=== PATIENT | female | born 1955 | race Caucasian/White ===

== ENCOUNTER → 2017-06-29 | Outpatient (CLI) | payer BC ==
--- NOTE | 2017-06-30 07:53 | MAMMOGRAPHY REPORT ---
BILATERAL DIGITAL SCREENING MAMMOGRAM TOMOSYNTHESIS WITH CAD: 06/29/2017 CLINICAL HISTORY: Routine screening. TECHNIQUE: Breast tomosynthesis in addition to standard 2D mammography was performed. Current study was also evaluated with a Computer Aided Detection (CAD) system. COMPARISON: Comparison is made to exams dated: 06/24/2016 mammogram, 06/21/2015 mammogram, 4 mammogram, 06/20/2014 mammogram, 06/16/2013 mammogram, and 05/18/2012 mammogram - [facility]. BREAST COMPOSITION: There are scattered areas of fibroglandular density in both breasts. FINDINGS: There is a stable metallic biopsy marker clip in the 6:00 right breast. No suspicious mass , architectural distortion or cluster of new, suspicious microcalcifications is seen. IMPRESSION: ACR BI-RADS CATEGORY 1: NEGATIVE There is no mammographic evidence of malignancy. A 1 year screening mammogram is recommended. The pa tient will receive written notification of the results. Approximately 10% of breast cancers are not detected with mammography. A negative mammographic report should not delay biopsy if a clinically suggestive mass is present. Laura Briggs M.D. ay/:06/29/2017 18:27:05 [employer]: Eva HEREDIA(R)(M), [facility] letter sent: Normal 1/2 BI-RADS Code: ACR BI-RADS Category 1: Negative
== END | disposition home or self-care (01) ==
LOC: C.MAMM 07:15
PROVIDERS: ATTEND Obstetrics & Gynecology
DX: Z12.31 Encounter for screening mammogram for malignant neoplasm of breast (principal)

== ENCOUNTER 2024-11-26 13:07 | Inpatient (IN) ==
[2024-11-26 13:37] LABS: Base Excess VBG 4.1 mEq/L; HCO3 VBG 29 mmol/L; Oxygen Saturation VBG < 60.0 %; PCO2 VBG 41 mmHg (38-50); PO2 VBG 33 mmHg; pH VBG 7.45 (7.36-7.41)
[2024-11-26 13:41] LABS: Basophils # (auto) 0.06 K/uL (0.00-0.20); Basophils % (auto) 0.6 %; Eosinophils % (auto) 1.1 %; Hematocrit (blood only) 39.8 % (37.0-47.0); Hemoglobin 13.9 g/dl (12.0-16.0); Immature Granulocytes # (auto) 0.05 K/uL (0.01-0.20); Immature Granulocytes % (auto) 0.5 %; Lymphocytes # (auto) 1.78 K/uL (1.20-3.40); Lymphocytes % (auto) 18.7 %; Mean Corpuscular Hemoglobin 32.4 pg (25.0-34.0); Mean Corpuscular Hgb Conc 34.9 g/dL (32.0-36.0); Mean Corpuscular Volume 92.8 fL (80.0-100.0); Mean Platelet Volume 9.4 fL (9.4-12.4); Monocytes # (auto) 0.61 K/uL (0.11-0.59); Monocytes % (auto) 6.4 %; Neutrophils # (auto) 6.91 K/uL (1.40-6.50); Neutrophils % (auto) 72.7 %; Platelet Count 325 K/uL (130-400); RDW Coefficient of Variation 12.6 % (11.5-14.5); RDW Standard Deviation 43.1 fL (36.4-46.3); Red Blood Count 4.29 M/uL (4.20-5.40); White Blood Count 9.51 K/ul (4.8-10.8)
[2024-11-26 13:46] LABS: iSTAT Hemoglobin 13.3 g/dl (12.0-16.0); iSTAT Ionized Calcium 1.16 mmol/l (1.12-1.32); iSTAT Potassium 3.8 mmol/L (3.3-5.0)
--- NOTE | 2024-11-26 13:59 | Electrocardiogram Report ---
Test Reason : Blood Pressure : */* mmHG Vent. Rate : 72 BPM Atrial Rate : 72 BPM P-R Int : 168 ms QRS Dur : 84 ms QT Int : 400 ms P-R-T Axes : 62 48 34 degrees QTcB Int : 438 ms Sinus rhythm with Premature supraventricular complexes Nonspecific ST abnormality Abnormal ECG When compared with ECG of 15-Sep-2024 04:19, Premature supraventricular complexes are now Present Confirmed by Geoffrey Shi ([id number]) on 11/26/2024 1:59:44 PM Referred By: Confirmed By: Geoffrey Shi
[2024-11-26 14:00] LABS: Albumin Level 4.2 gm/dl (3.4-5.0); BUN Creatinine Ratio 15.6 (10-20); Bilirubin Direct 0.1 mg/dl (0-0.2); Bilirubin,Total 0.5 mg/dl (0.2-1.0); Creatinine Clr Calc Pharmacy 62.5 ml/min; Magnesium 1.8 mg/dl (1.7-2.4); Potassium 3.9 mmol/L (3.5-5.1); Total Protein 8.3 gm/dl (6.0-8.3)
[2024-11-26 14:11] LABS: Partial Thromboplastin Time 26 Seconds (21-31); Prothrombin Time 10.8 Seconds (9.0-12.0)
--- NOTE | 2024-11-26 14:13 | CT Scan Report ---
CT head without contrast History: AMS Comparison: None Technique: Using multidetector thin collimation helical acquisition technique, axial, coronal and sagittal CT images from the skull base to the vertex were obtained without intravenous contrast. Dose reduction techniques were achieved by using automatic exposure control and/or adjustment of mA and/or kV according to patient size and/or use of iterative reconstruction technique. Findings: No intracranial hemorrhage, mass-effect, or midline shift. The ventricles are proportionate to the cerebral sulci. There is a small area of edema and loss of the johnson/white matter differentiation involving the left frontal operculum. A clearly visualized hyperdensity is seenwithin the left M2 artery, compatible with a thrombus. The basal cisterns are patent. The visualized paranasal sinuses are clear. Mastoid air cells are clear. Impression: Acute left frontal lobe infarct Findings discussed with Dr. Mason by Dr. Yip at 2:12 PM, 11/26/2024 Electronically signed by Cyaetano Yip 11-26-2024 2:13 PM
--- NOTE | 2024-11-26 14:18 | Emergency Department Note ---
History of Present Illness General Chief complaint: Confusion Stated complaint: LIGHTHEADED YESTERDAY, CONFUSED TODAY Time Seen by Provider: 11/26/24 13:14 Source: patient and family () History of Present Illness Provider complaint: Confusion 7-year-old female presents emergency department for confusion. is providing history. reports that the patient felt very lightheaded all day yesterday starting at 11 AM. He reports that when he woke up at 730 he noticed that the patient was very confused. He states he is not sure what time this started as the patient woke up before him. He states that the patient went to bed last night with a normal mental status at 11 PM. No falls or trauma. No fever. No liver dysfunction. No numbness or tingling. No seizures. Home Medications Medication Instructions Recorded Confirmed Type calcium 315 mg (as 1 tab PO HS 05/19/19 10/13/24 History citrate)-vitamin D3 6.25 mcg (250 unit) tablet multivitamin (Daily Multiple 1 tab PO QAM 05/19/19 10/13/24 History tablet) black cohosh 200 mg capsule 200 mg PO QAM 08/04/19 10/13/24 History furosemide 20 mg tablet 20 mg PO DAILY #10 tabs 08/21/23 10/13/24 Rx hydrochlorothiazide 25 mg tablet 25 mg PO QAM #90 tabs 11/30/23 10/13/24 Rx rosuvastatin 10 mg tablet 10 mg PO QAM #90 tabs 01/26/24 10/13/24 Rx metoprolol succinate 25 mg 25 mg PO DAILY #90 tabs 06/15/24 10/13/24 Rx tablet,extended release 24 hr losartan 25 mg tablet 25 mg PO DAILY #90 tabs 06/20/24 10/13/24 Rx cyclobenzaprine 5 mg tablet 5 mg PO TID PRN muscle spasm #20 09/15/24 10/13/24 Rx tabs mecobalamin (vitamin B12) 1,000 1,000 mcg PO DAILY 09/29/24 10/13/24 History mcg chewable tablet mv-min-vit C-ascorb 1 tab PO QAM PRN 09/29/24 10/13/24 History Gc-Zhf-Awv-herb #124 333 mg-1.7 mg chewable tablet (Airborne (ascorbate sodium)) gabapentin 100 mg capsule See Rx Instructions PO TID #90 caps 10/13/24 10/13/24 Rx hydrocodone 5 mg-acetaminophen 325 1 tab PO Q6H #20 tabs 10/14/24 Rx mg tablet Allergies Allergy/AdvReac Type Severity Reaction Status Date / Time lisinopril AdvReac Mild headache, Verified 10/13/24 15:36 dizzy mold Allergy Mild Congested Uncoded 10/13/24 15:36 Dust AdvReac Unknown Uncoded 10/13/24 15:36 Pollen AdvReac Unknown Uncoded 10/13/24 15:36 Ragweed AdvReac Unknown Uncoded 10/13/24 15:36 Past Med/Surg History Problem List (Updated 11/26/24 @ 15:07 by Kee Mason MD) Stroke (Acute) Post herpetic neuralgia Cellulitis of left breast Shingles Peripheral edema White coat syndrome with diagnosis of hypertension Palpitations Hypertension (Chronic) Hyperlipidemia (Chronic) Medical History (Updated 11/26/24 @ 15:07 by Kee Mason MD) Nausea and vomiting after administration of anesthetic agent Surgical History History of left breast biopsy benign--marker in place History of bilateral tubal ligation History of hysterectomy with unilateral oophorectomy History of colonoscopy History of oral surgery gum sx History of wisdom tooth extraction Family History Grandmother (Paternal) Breast cancer Father Family hx of colon cancer Grandfather (Maternal) Family history of diabetes mellitus Aunt Family hx of colon cancer Other No family history of adverse response to anesthesia Denies family history of Ovarian cancer Prostate cancer Myocardial infarction Colorectal cancer Social History Smoking Status: Never smoker Second Hand Exposure: No (father smoked); Do You Dip or Chew Tobacco: No; Hx Alcohol Use: Yes Alcohol type: wine Alcohol Intake Frequency: Monthly or Less Hx Substance Use: No Preferred Language: Bulgarian Communication Ability: Effective Visual Impairment: Limited Hearing Ability: Normal Logistics Planning Manager Required: No Beliefs That Will Affect Care: None marital status: Current Living Situation: Spouse current occupational status: retired How many Children do You have: 2 Feels Safe at Home: Yes Childhood Exposure to Second-Hand Smoke: Yes Diet: regular caffeine: Yes during the past year weight has: remained stable Dental Care, Regularly: Yes Physical Activity Frequency: 3-4 Times per Week Seatbelt Use: always Sunscreen Use: Yes Do you think of yourself as: straight/heterosexual Sexual Activity: has been sexually active, but not for at least 12 months Gender Identity: Female Assistive Devices: Contacts and Glasses Physical Exam Vital Signs Vital Signs - 24 hr 11/26/24 13:10 11/26/24 13:19 11/26/24 13:37 Temperature 36.8 C Temperature Source Temporal Artery Scan Pulse Rate 82 79 Pulse Rate [Apical] Respiratory Rate 18 Respiratory Effort / Characteristics Respiratory Depth Respiratory Pattern Blood Pressure 153/115 H Blood Pressure [Left Arm] Blood Pressure Mean 127 Blood Pressure Mean [Left Arm] Blood Pressure Position [Left Arm] Pulse Oximetry 95 93 Oxygen Delivery Method Room Air Room Air Sepsis Recent Fever Within 48 Hours No Sepsis New/Unexplained Change in Mental Status N/A Sepsis Action Taken by Nursing No Action Required 11/26/24 13:37 11/26/24 14:04 Temperature Temperature Source Pulse Rate Pulse Rate [Apical] 79 Respiratory Rate 16 20 Respiratory Effort / Characteristics Non-Labored Spontaneous Respiratory Depth Normal Respiratory Pattern Regular Blood Pressure Blood Pressure [Left Arm] 185/94 H Blood Pressure Mean Blood Pressure Mean [Left Arm] 124 Blood Pressure Position [Left Arm] Semi-fowlers Pulse Oximetry 97 99 Oxygen Delivery Method Room Air Room Air Sepsis Recent Fever Within 48 Hours Sepsis New/Unexplained Change in Mental Status Sepsis Action Taken by Nursing Physical Exam HENT: Exam performed. -Head: Normocephalic and atraumatic. -Right Ear: External ear normal. No mastoid erythema -Left Ear: External ear normal. No mastoid erythema -Mouth/Throat: The oropharynx is clear and moist. No trismus in the jaw. No dental abscesses or uvula swelling. No oropharyngeal exudate or tonsillar abscesses. EYES: Conjunctivae and EOM are normal. Pupils are equal, round, and reactive to light. Right eye exhibits no discharge. Left eye exhibits no discharge. No scleral icterus. NECK: Normal range of motion. Neck supple. No JVD present. No rigidity. No tracheal deviation and normal range of motion present. CV: Normal rate, regular rhythm, normal heart sounds and intact distal pulses. There is no peripheral edema. Palpable radial pulses bue. PULM/CHEST: Effort normal and breath sounds normal. No respiratory distress. No stridor. She has no wheezes. She has no rales. ABD: The abdomen is soft. She has no distension. No mass is present. There is no tenderness. There is no rebound, no guarding. MUSC/SKEL: Normal range of motion. There is no peripheral edema, tenderness or deformity. NEURO: She is alert and oriented to person, place, and time. She has normal strength. No cranial nerve deficit or sensory deficit. Coordination and gait normal. GCS eye subscore is 4. GCS verbal subscore is 5. GCS motor subscore is 6. Cerebellar tests wnl. Course Course 1314: The patient was evaluated in room C1. A complete history and physical exam was performed Cardiac monitoring: An order was placed for continuous cardiac monitoring. The monitor shows a rate of 70 with sinus rhythm interpreted by me 1417: Received a call from radiology Dr. Yip states that the patient has a left frontal lobe infarct with a hyperdensity seen within left M2 compatible with a thrombus. Will discuss with telestroke however patient is not a TNKase candidate in my opinion as patient's last well-known normal was yesterday at 11 PM and is unclear when her symptoms began. 1432: Spoke with Dr. Martinez from [facility]. He agrees patient is not a TNKase candidate and states that there is no endovascular invention that can be performed. Her recommends aspirin 324, Plavix 300, MRI and MRA and admission to the hospital. Administered Medications Discontinued Medications Aspirin (Aspirin 81 Mg Chew) 324 mg PO NOW STA Stop: 11/26/24 14:32 Last Admin: 11/26/24 14:48 Dose: 324 mg Documented By: JULIETA Clopidogrel Bisulfate (Clopidogrel Bisulfate 300 Mg Tab) 300 mg PO NOW STA Stop: 11/26/24 14:32 Last Admin: 11/26/24 14:48 Dose: 300 mg Documented By: JULIETA Medical Decision Making Laboratory Data Attestation: I reviewed the patient's lab results. 11/26/24 13:20 11/26/24 13:20 Lab Results 11/26/24 11/26/24 11/26/24 Range/Units 13:20 13:33 14:00 WBC 9.51 (4.8-10.8) K/ul RBC 4.29 (4.20-5.40) M/uL Hgb 13.9 (12.0-16.0) g/dl POC Hgb 13.3 (12.0-16.0) g/dl Hct 39.8 (37.0-47.0) % POC Hct 39 (37-47) % MCV 92.8 (80.0-100.0) fL MCH 32.4 (25.0-34.0) pg MCHC 34.9 (32.0-36.0) g/dL RDW Std Deviation 43.1 (36.4-46.3) fL RDW Coeff of Italo 12.6 (11.5-14.5) % Plt Count 325 (130-400) K/uL MPV 9.4 (9.4-12.4) fL Immature Gran % (Auto) 0.5 % Neut % (Auto) 72.7 % Lymph % (Auto) 18.7 % Monroe % (Auto) 6.4 % Eos % (Auto) 1.1 % Baso % (Auto) 0.6 % Neut # (Auto) 6.91 H (1.40-6.50) K/uL Lymph # (Auto) 1.78 (1.20-3.40) K/uL Monroe # (Auto) 0.61 H (0.11-0.59) K/uL Eos # (Auto) 0.10 (0.00-0.50) K/uL Baso # (Auto) 0.06 (0.00-0.20) K/uL Immature Gran # (Auto) 0.05 (0.01-0.20) K/uL PT 10.8 (9.0-12.0) Seconds INR 1.0 (0.9-1.1) APTT 26 (21-31) Seconds PTT Ratio 1.0 VBG pH 7.45 H (7.36-7.41) VBG pCO2 41 (38-50) mmHg VBG pO2 33 mmHg VBG HCO3 29 mmol/L VBG O2 Saturation < 60.0 % VBG Base Excess 4.1 mEq/L POC Sodium 135 (135-144) mmol/L Sodium 134 L (136-145) mmol/L POC Potassium 3.8 (3.3-5.0) mmol/L Potassium 3.9 (3.5-5.1) mmol/L POC Chloride 97 L (101-112) mmol/L Chloride 97 L (98-107) mmol/L Carbon Dioxide 26 (21-32) mmol/L POC Total CO2 23 L (24-31) mmol/L Anion Gap 11 (3-11) POC Anion Gap 19.0 (16-25) mmol/L POC BUN 14 (7-18) mg/dl BUN 15 (6-23) mg/dl Creatinine 0.96 (0.6-1.2) mg/dl POC Creatinine 1.0 (0.6-1.3) mg/dl Est Cr Clr Drug Dosing 62.5 ml/min eGFR 64.45 BUN/Creatinine Ratio 15.6 (10-20) Glucose 112 H (70-99(Fasting)) mg/dl POC Glucose (other) 113 H (70-99) mg/dl Calcium 10.0 (8.6-10.3) mg/dl POC Ioniz Calcium Anne Marie 1.16 (1.12-1.32) mmol/l Magnesium 1.8 (1.7-2.4) mg/dl Total Bilirubin 0.5 (0.2-1.0) mg/dl Direct Bilirubin 0.1 (0-0.2) mg/dl AST 26 (13-39) U/L ALT 23 (7-52) U/L Alkaline Phosphatase 76 (34-104) U/L Ammonia 16.0 L (18-72) umol/L Total Protein 8.3 (6.0-8.3) gm/dl Albumin 4.2 (3.4-5.0) gm/dl Lipase 14 (11-82) U/L Urine Comment Imaging Data Radiologist's Impression: Head CT 11/26/24 13:20 CT head without contrast History: AMS Comparison: None Technique: Using multidetector thin collimation helical acquisition technique, axial, coronal and sagittal CT images from the skull base to the vertex were obtained without intravenous contrast. Dose reduction techniques were achieved by using automatic exposure control and/or adjustment of mA and/or kV according to patient size and/or use of iterative reconstruction technique. Findings: No intracranial hemorrhage, mass-effect, or midline shift. The ventricles are proportionate to the cerebral sulci. There is a small area of edema and loss of the johnson/white matter differentiation involving the left frontal operculum. A clearly visualized hyperdensity is seenwithin the left M2 artery, compatible with a thrombus. The basal cisterns are patent. The visualized paranasal sinuses are clear. Mastoid air cells are clear. Impression: Acute left frontal lobe infarct Findings discussed with Dr. Mason by Dr. Yip at 2:12 PM, 11/26/2024 Electronically signed by Cayetano Yip 11-26-2024 2:13 PM ECG Data Attestation: I personally reviewed and interpreted this ECG as follows: Rate (beats per minute): 72 Rhythm: + normal sinus ECG Intervals/blocks: + Normal QRS, + Normal AK and + Normal QT-c ECG ST segments: + Normal ST segments MDM Narrative 1314: The patient was evaluated in room C1. A complete history and physical exam was performed Cardiac monitoring: An order was placed for continuous cardiac monitoring. The monitor shows a rate of 70 with sinus rhythm interpreted by me 1417: Received a call from radiology Dr. Yip states that the patient has a left frontal lobe infarct with a hyperdensity seen within left M2 compatible with a thrombus. Will discuss with telestroke however patient is not a TNKase candidate in my opinion as patient's last well-known normal was yesterday at 11 PM and is unclear when her symptoms began. 1432: Spoke with Dr. Martinez from [facility]. He agrees patient is not a TNKase candidate and states that there is no endovascular invention that can be performed. Her recommends aspirin 324, Plavix 300, MRI and MRA and admission to the hospital. Impression & Plan Stroke Discharge Plan Visit Data Chief Complaint: Confusion Stated Complaint: LIGHTHEADED YESTERDAY, CONFUSED TODAY ED Provider: Kee Mason Discharge Problem: Stroke Patient Disposition: Admitted As Inpatient Condition: Fair Forms Stand Alone Forms: My [facility] [employer] Prescriptions Prescriptions: No Action furosemide 20 mg tablet 20 mg PO DAILY Qty: 10 2RF Rx Instructions: for 5 days, hold HCTZ hydrochlorothiazide 25 mg tablet 25 mg PO QAM Qty: 90 3RF Hold Instructions: not taking it rosuvastatin 10 mg tablet 10 mg PO QAM Qty: 90 3RF metoprolol succinate 25 mg tablet extended release 24 hr 25 mg PO DAILY Qty: 90 3RF losartan 25 mg tablet 25 mg PO DAILY Qty: 90 3RF hydrocodone-acetaminophen 5-325 mg tablet 1 tab PO Q6H Qty: 20 0RF Rx Instructions: short term till gabapentin is [place] calcium citrate-vitamin D3 315 mg- 250 unit tablet 1 tab PO HS multivitamin [Daily Multiple] tablet 1 tab PO QAM gabapentin 100 mg capsule See Rx Instructions PO TID Qty: 90 2RF Rx Instructions: 1 at bedtime for 1 week then 1 twice a for a week then 1 three times a day orally three times a day; cyclobenzaprine 5 mg tablet 5 mg PO TID PRN (Reason: muscle spasm) Qty: 20 0RF mecobalamin (vitamin B12) 1,000 mcg tablet,chewable 1,000 mcg PO DAILY black cohosh 200 mg Capsule 200 mg PO QAM Airborne (ascorbate sodium) 333-1.7 mg tablet,chewable 1 tab PO QAM PRN Referrals Referrals: Ernestine Snow CRNP [Primary Care Provider] - Discharge Problem: Stroke Qualifiers: CVA mechanism: unspecified Qualified Code(s): I63.9 - Cerebral infarction, unspecified
[2024-11-26] MEDS: CLOPIDOGREL BISULFATE 300 MG TAB PO STA (14:48)
[2024-11-26] MEDS: ASPIRIN 81 MG CHEW PO STA (14:48)
[2024-11-26 14:55] LABS: Appearance Urine Clear (Clear); Bacteria Urine Automated None Seen (None Seen); Bilirubin Urine Negative (Negative); Blood Urine Negative (Negative); Cast Urine Automated 0-2 /lpf (0-2); Color Urine Yellow; Glucose Urine UA Negative (Negative); Ketones Urine Negative (Negative); Leukocyte Esterase Urine 2+ (Negative); Nitrite Urine Negative (Negative); Protein Urine Negative (Negative); RBC Urine Automated 0-2 /hpf (0-2); Specific Gravity Urine 1.018 (1.000-1.030); Urobilinogen Urine Negative (Negative)
--- NOTE | 2024-11-26 15:49 | History & Physical Report ---
Date of Service November 26, 2024 Assessment & Plan (1) Stroke: Plan: - Acute left frontal stroke on CT - Stroke alert called. Dr. Martinez from [place] recommends aspirin, Plavix, MRI head, MRA of the head and neck - Echocardiogram with bubble study to rule out PFO and paradoxical embolism - Orders from stroke order set used for critical pathway - PT, OT, COLD STORAGE SUPERVISOR evaluations ordered - Admit to medical telemetry (2) Post herpetic neuralgia: Plan: - History of stroke along the left dermatome right under left breast 5 to 6 weeks ago - No open sores - Pain is improved - Patient discontinued gabapentin at home (3) Shingles: Plan: - Patient examined. No open lesions along the dermatome on the left under the left breast. (4) Hypertension: Plan: - Blood pressure 143 systolically at patient's last office visit. Currently BP is 185/94. - Continue home medications. Will allow for permissive hypertension during this acute phase of the CVA - Check echocardiogram as part of stroke protocol (5) Hyperlipidemia: Plan: - Continue rosuvastatin Plan DVT prophylaxis: SCDs and ELISABETH ruiz. Hold anticoagulation during acute phase of CVA CODE STATUS: Full resuscitation per patient and family Anticipate patient will need rehabilitation particularly with speech-language pathology Case discussed with Dr. Ybarra History of Present Illness Chief Complaint: Acute CVA Primary Care Provider: TERRENCE Olivera Attending: Dr. Ybarra Mrs. Feldman is a 69-year-old female with a past medical history including hyperlipidemia, hypertension, palpitations, peripheral edema, shingles recently, postherpetic neuralgia, cellulitis of left breast, whitecoat syndrome with diagnosis of hypertension. She presents with confusion this morning 730 that seemed worse than yesterday. She began feeling lightheaded yesterday about 11 AM. Last known well was last night at 11 PM. and daughter in the room at the time of my examination. They state that she seemed confused had trouble finding words and they brought her to the emergency department. She had no falls or trauma. She has not been ill. They did not notice any facial droop or change in gait or function. They deny history of stroke or TIA in the past. At the time of my examination, patient is awake and alert. She follows simple commands. She is having difficulty with word finding and has some minimal ataxia. She denies current headache, visual changes, pain, fever, chills. A stroke alert was called and patient is not a TNKase candidate and there is no endovascular invention that can be performed. Recommendation is aspirin 324, Plavix 300, MRI and MRA and admission to the hospital. Patient has a history of shingles 5 to 6 weeks ago. She saw some evidence of the infection under her left breast following the dermatome back to her spine. There are no open lesions. Patient stopped taking gabapentin as symptoms have improved. Patient's current blood pressure is 185/94. Last outpatient reading was 143/89 on 09/29/2024. Patient reported to have whitecoat syndrome. Will allow for permissive hypertension due to acute CVA. Patient has no other acute complaints at this time. Allergies Allergy/AdvReac Type Severity Reaction Status Date / Time mold Allergy Intermediate Congested Unverified 11/26/24 15:58 pollen extracts Allergy Intermediate Congested Unverified 11/26/24 15:58 ragweed pollen Allergy Intermediate Congested Unverified 11/26/24 15:58 lisinopril AdvReac Mild headache, Verified 11/26/24 15:58 dizzy Dust AdvReac Unknown Congested Uncoded 11/26/24 15:58 Home Medications Medication Instructions Recorded Confirmed Type calcium 315 mg (as 1 tab PO HS 05/19/19 11/26/24 History citrate)-vitamin D3 6.25 mcg (250 unit) tablet black cohosh 200 mg capsule 200 mg PO QAM 08/04/19 11/26/24 History hydrochlorothiazide 25 mg tablet 25 mg PO QAM #90 tabs 11/30/23 11/26/24 Rx rosuvastatin 10 mg tablet 10 mg PO QAM #90 tabs 01/26/24 11/26/24 Rx metoprolol succinate 25 mg 25 mg PO DAILY #90 tabs 06/15/24 11/26/24 Rx tablet,extended release 24 hr losartan 25 mg tablet 25 mg PO DAILY #90 tabs 06/20/24 11/26/24 Rx cyclobenzaprine 5 mg tablet 5 mg PO TID PRN muscle spasm #20 09/15/24 11/26/24 Rx tabs mecobalamin (vitamin B12) 1,000 1,000 mcg PO DAILY 09/29/24 11/26/24 History mcg chewable tablet mv-min-vit C-ascorb 1 tab PO QAM PRN Sick 09/29/24 11/26/24 History Pc-Apg-Mmd-herb #124 333 mg-1.7 mg chewable tablet (Airborne (ascorbate sodium)) multivitamin 1 tab PO DAILY 11/26/24 11/26/24 History Past Med/Surg History Problem List (Updated 11/26/24 @ 15:07 by Kee Mason MD) Stroke (Acute) Post herpetic neuralgia Cellulitis of left breast Shingles Peripheral edema White coat syndrome with diagnosis of hypertension Palpitations Hypertension (Chronic) Hyperlipidemia (Chronic) Medical History (Updated 11/26/24 @ 15:07 by Kee Mason MD) Nausea and vomiting after administration of anesthetic agent Surgical History History of left breast biopsy benign--marker in place History of bilateral tubal ligation History of hysterectomy with unilateral oophorectomy History of colonoscopy History of oral surgery gum sx History of wisdom tooth extraction Family History Grandmother (Paternal) Breast cancer Father Family hx of colon cancer Grandfather (Maternal) Family history of diabetes mellitus Aunt Family hx of colon cancer Other No family history of adverse response to anesthesia Denies family history of Ovarian cancer Prostate cancer Myocardial infarction Colorectal cancer Social History Smoking Status: Never smoker Second Hand Exposure: No (father smoked); Do You Dip or Chew Tobacco: No; Hx Alcohol Use: No Hx Substance Use: No Preferred Language: Hungarian Communication Ability: Effective Visual Impairment: Limited Hearing Ability: Normal Sales Ledger Clerk Required: No Beliefs That Will Affect Care: None marital status: Current Living Situation: Spouse current occupational status: retired How many Children do You have: 2 Other Information That Helps Us Care for You: No Feels Safe at Home: Yes Childhood Exposure to Second-Hand Smoke: Yes Diet: regular caffeine: Yes during the past year weight has: remained stable Dental Care, Regularly: Yes Physical Activity Frequency: 3-4 Times per Week Seatbelt Use: always Sunscreen Use: Yes Do you think of yourself as: straight/heterosexual Sexual Activity: has been sexually active, but not for at least 12 months Gender Identity: Female Assistive Devices: Glasses Review of Systems 2 Review of Systems: A total of 10 systems was reviewed and is negative other than as listed in the HPI Physical Exam 2 Physical Exam: GENERAL : No acute distress. Pleasant. Difficulty with word finding resulting in some frustration with the patient. EYES: No icterus, gaze conjugate. Pupils equal round and reactive to light and accommodation. Extraocular movement is intact NOSE: No evidence of epistaxis MOUTH: No lesions or candidiasis. No facial droop. Tongue is midline. Strength of tongue is appropriate bilaterally NECK: Supple. No appreciation of carotid bruits LUNGS: CTA B/L, no wheezes, rales or rhonchi HEART: Regular, rate controlled. No appreciation of murmurs gallops or rubs. ABDOMEN: Soft, NT, ND, BS Present. No appreciation of abdominal bruit EXTREMITIES: No LE edema, pedal pulses intact and equal bilaterally. NEURO: Awake and alert. Some word finding difficulty. Cerebellar function intact with [id number], rapid on movements, [id number]. Strength is equal and appropriate upper and lower extremities. Toes are downgoing bilaterally. Patient follows commands. Aside from some word finding difficulty, no focal deficits appreciated at bedside. Results & Data Results & Data Vital Signs (Past 12 Hours) Vital Signs Temp Pulse Pulse Resp BP BP Pulse Ox 11/26/24 14:04 79 20 185/94 H 99 11/26/24 13:37 16 97 11/26/24 13:37 93 11/26/24 13:19 79 11/26/24 13:10 36.8 C 82 18 153/115 H 95 O2 Del Method 11/26/24 14:04 Room Air 11/26/24 13:37 Room Air 11/26/24 13:37 Room Air 11/26/24 13:19 11/26/24 13:10 Room Air Laboratory Results 11/26/24 13:20 11/26/24 13:20 INR 1.0 (0.9-1.1) 11/26/24 13:[address] 11/26/24 13:20 CT head without contrast History: AMS Comparison: None Technique: Using multidetector thin collimation helical acquisition technique, axial, coronal and sagittal CT images from the skull base to the vertex were obtained without intravenous contrast. Dose reduction techniques were achieved by using automatic exposure control and/or adjustment of mA and/or kV according to patient size and/or use of iterative reconstruction technique. Findings: No intracranial hemorrhage, mass-effect, or midline shift. The ventricles are proportionate to the cerebral sulci. There is a small area of edema and loss of the johnson/white matter differentiation involving the left frontal operculum. A clearly visualized hyperdensity is seenwithin the left M2 artery, compatible with a thrombus. The basal cisterns are patent. The visualized paranasal sinuses are clear. Mastoid air cells are clear. Impression: Acute left frontal lobe infarct Findings discussed with Dr. Mason by Dr. Yip at 2:12 PM, 11/26/2024 Electronically signed by Cayetano Yip 11-26-2024 2:13 PM Medications Administered Aspirin 324 mg Clopidogrel 300 mg ECG Additional Comments: Code Status & VTE Plan Code Status Full resuscitation VTE Prophylaxis Plan VTE Prophylaxis will be ordered: Yes Supervising Physician Co-Signing Physician Notes The patient was seen by me. The chart was reviewed. Case discussed with TAN Cali. Agree with assessment and plan PG Care Time/CCT Total # of Minutes Spent Total Time Spent with Patient: Total time spent is greater than 50% in coordination of care (as documented) at patient's floor/unit and/or counseling patient: 60 minutes with patient with greater than 30 minutes pvug-he-fhfk with patient, , daughter Coding Level of Care Code 28581 INT INP/OBS CARE 2/55MIN Medical Decision Making Moderate Complexity Diagnoses Stroke I63.9 CVA mechanism: unspecified Post herpetic neuralgia B02.29 Shingles B02.9 Primary hypertension I10 Hypertension type: primary hypertension Pure hypercholesterolemia E78.00 Hyperlipidemia type: pure hypercholesterolemia (1) Stroke CVA mechanism: unspecified Qualified Code(s): I63.9 - Cerebral infarction, unspecified (4) Hypertension Hypertension type: primary hypertension Qualified Code(s): I10 - Essential (primary) hypertension (5) Hyperlipidemia Hyperlipidemia type: pure hypercholesterolemia Qualified Code(s): E78.00 - Pure hypercholesterolemia, unspecified
[2024-11-26] MEDS ORDERED: PHARMACIST DISCHARGE MED REC CONSULT PRN (17:39)
[2024-11-26] MEDS: GABAPENTIN 100 MG CAP PO SCH (20:22)
[2024-11-27 06:52] LABS: Basophils # (auto) 0.04 K/uL (0.00-0.20); Basophils % (auto) 0.4 %; Eosinophils # (auto) 0.09 K/uL (0.00-0.50); Hematocrit (blood only) 38.4 % (37.0-47.0); Hemoglobin 13.1 g/dl (12.0-16.0); Immature Granulocytes # (auto) 0.03 K/uL (0.01-0.20); Immature Granulocytes % (auto) 0.3 %; Lymphocytes # (auto) 1.88 K/uL (1.20-3.40); Lymphocytes % (auto) 20.7 %; Mean Corpuscular Hemoglobin 31.2 pg (25.0-34.0); Mean Corpuscular Hgb Conc 34.1 g/dL (32.0-36.0); Mean Corpuscular Volume 91.4 fL (80.0-100.0); Mean Platelet Volume 9.5 fL (9.4-12.4); Monocytes # (auto) 0.75 K/uL (0.11-0.59); Monocytes % (auto) 8.3 %; Neutrophils % (auto) 69.3 %; Platelet Count 319 K/uL (130-400); RDW Coefficient of Variation 12.7 % (11.5-14.5); RDW Standard Deviation 42.3 fL (36.4-46.3); White Blood Count 9.09 K/ul (4.8-10.8)
[2024-11-27 08:17] LABS: Estimated Average Glucose 126 mg/dl
[2024-11-27 08:19] LABS: BUN Creatinine Ratio 16.3 (10-20); Calcium 9.4 mg/dl (8.6-10.3); Chol HDL Ratio 3.8 (0-5); Creatinine Clr Calc Pharmacy 69.4 ml/min; Potassium 3.8 mmol/L (3.5-5.1)
[2024-11-27] MEDS: LORazepam 0.5 MG TAB PO STA (08:43)
--- NOTE | 2024-11-27 08:43 | Neurology Consultation ---
Date of Consultation November 27, 2024 Assessment & Plan (1) Stroke: Plan 69-year-old right-handed female presenting with aphasia characterized by hesitant speech, word finding difficulty, paraphasic errors, present upon awakening yesterday morning. She does not have an associated hemiparesis or visual field deficit. Patient's initial CT of the head reveals an acute to subacute appearing cortical left frontal lobe infarct with an associated thrombosed left M2 vessel. The cortical location and size of her stroke are suggestive of a cardioembolic event, ipsilateral carotid embolism could also be considered. MRI to be completed today, follow-up with results. Follow-up with results of echocardiogram. Continue cardiac monitoring. Consider ambulatory cardiac monitoring at time of discharge as well. Patient needs vascular imaging completed, either MRA of the head and neck or CTA of the head and neck. I see that MRAs have been ordered. Consider increasing patient's dosage of rosuvastatin, goal LDL 70 or less. Agree with dual antiplatelet therapy. Would discontinue clopidogrel after 3 weeks and continue with aspirin monotherapy. However, if atrial fibrillation is identified or if her echocardiogram reveals findings suggestive of cardioembolic source, would consider anticoagulation going forward. Blood pressure management per stroke protocol. Consultations with PT/OT/speech therapy. She may follow-up with myself or an FRANCIS in neurology clinic 2 to 3 weeks after discharge. Please call with any questions. History of Present Illness Reason for Consultation: stroke Requesting Physician: Johnny Attending Physician: Dwaine Ybarra MD History of Present Illness The patient is a 69-year-old right handed female who presented to the emergency department yesterday afternoon for further assessment of lightheadedness and confusion that was noted upon awakening. She reports difficulty finding words and speaking. Makes occasional word and syllable substitutions. Her symptoms have been persistent. She reports having episodes of dizziness over the previous week. No weakness or difficulty with gait or balance reported. No change in vision. No headache. She had been seen in the emergency department September 15, 2024 with chest pain. She has a past medical history notable for hypertension, hyperlipidemia, and recent left thoracic dermatome shingles which has been healing. She does not take aspirin or other blood thinners. I independently reviewed patient's CT of the head completed at time of presentation which reveals an acute to subacute appearing left frontal lobe cortical infarct with a probable associated thrombosed left MCA branch vessel. An electrocardiogram revealed a sinus rhythm with premature ventricular complexes. She does not report any dizziness or lightheadedness at this time although continues to exhibit some difficulty with speech, word finding, occasional word and syllable substitutions. Her daughter is present at bedside. Allergies Allergy/AdvReac Type Severity Reaction Status Date / Time mold Allergy Intermediate Congested Unverified 11/26/24 15:58 pollen extracts Allergy Intermediate Congested Unverified 11/26/24 15:58 ragweed pollen Allergy Intermediate Congested Unverified 11/26/24 15:58 lisinopril AdvReac Mild headache, Verified 11/26/24 15:58 dizzy Dust AdvReac Unknown Congested Uncoded 11/26/24 15:58 Home Medications Medication Instructions Recorded Confirmed Type calcium 315 mg (as 1 tab PO HS 05/19/19 11/26/24 History citrate)-vitamin D3 6.25 mcg (250 unit) tablet black cohosh 200 mg capsule 200 mg PO QAM 08/04/19 11/26/24 History hydrochlorothiazide 25 mg tablet 25 mg PO QAM #90 tabs 11/30/23 11/26/24 Rx rosuvastatin 10 mg tablet 10 mg PO QAM #90 tabs 01/26/24 11/26/24 Rx metoprolol succinate 25 mg 25 mg PO DAILY #90 tabs 06/15/24 11/26/24 Rx tablet,extended release 24 hr losartan 25 mg tablet 25 mg PO DAILY #90 tabs 06/20/24 11/26/24 Rx cyclobenzaprine 5 mg tablet 5 mg PO TID PRN muscle spasm #20 09/15/24 11/26/24 Rx tabs mecobalamin (vitamin B12) 1,000 1,000 mcg PO DAILY 09/29/24 11/26/24 History mcg chewable tablet mv-min-vit C-ascorb 1 tab PO QAM PRN Sick 09/29/24 11/26/24 History Lc-Apr-Hjn-herb #124 333 mg-1.7 mg chewable tablet (Airborne (ascorbate sodium)) multivitamin 1 tab PO DAILY 11/26/24 11/26/24 History Patient History Medical History (Updated 11/26/24 @ 15:07 by Kee Mason MD) Nausea and vomiting after administration of anesthetic agent Surgical History History of left breast biopsy benign--marker in place History of bilateral tubal ligation History of hysterectomy with unilateral oophorectomy History of colonoscopy History of oral surgery gum sx History of wisdom tooth extraction Family History Grandmother (Paternal) Breast cancer Father Family hx of colon cancer Grandfather (Maternal) Family history of diabetes mellitus Aunt Family hx of colon cancer Other No family history of adverse response to anesthesia Denies family history of Ovarian cancer Prostate cancer Myocardial infarction Colorectal cancer Social History Smoking Status: Never smoker Second Hand Exposure: No (father smoked); Do You Dip or Chew Tobacco: No; Hx Alcohol Use: No Hx Substance Use: No Preferred Language: Lithuanian Communication Ability: Effective Visual Impairment: Limited Hearing Ability: Normal Housing Director Required: No Beliefs That Will Affect Care: None marital status: Current Living Situation: Spouse current occupational status: retired How many Children do You have: 2 Other Information That Helps Us Care for You: No Feels Safe at Home: Yes Childhood Exposure to Second-Hand Smoke: Yes Diet: regular caffeine: Yes during the past year weight has: remained stable Dental Care, Regularly: Yes Physical Activity Frequency: 3-4 Times per Week Seatbelt Use: always Sunscreen Use: Yes Do you think of yourself as: straight/heterosexual Sexual Activity: has been sexually active, but not for at least 12 months Gender Identity: Female Assistive Devices: Glasses Review of Systems Constitutional: no fever Eyes: no blind spots and no diplopia Ear, Nose, Mouth, Throat: no hearing loss Respiratory: no dyspnea Cardiovascular: + palpitations Gastrointestinal: no nausea Genitourinary: no dysuria Musculoskeletal: no myalgia Integumentary: as per Subjective / HPI Neurologic: as per Subjective / HPI and + abnormal speech; no gait abnormality, no localized weakness, no loss of sensation, no lack of coordination, no tremor(s), no abnormal movements and no headache(s) Psychiatric: no depression and no anxiety Hematologic / Lymphatic: no easy bleeding and no easy bruising Exam (Neuro) Constitutional: well developed and well nourished; no acute distress Eyes: normal visual humphrey by confrontation, PERRL and EOM intact bilaterally; no nystagmus Neurologic: Oriented to:: Person, Place and Time Memory: Short Term Intact and Remote Intact Attention: Span Intact and Concentration Intact Speech Fluency: Other (Mild difficulty with naming, hesitant speech at times, occasional paraphasic errors); negative Dysarthria or Dysfluency Speech Aphasia: Aphasia Fund of Knowledge: Current Events, Past History and Vocabulary Cranial Nerves: Normal II, III, IV, , V, VIII, IX, X, XI and XII; Abnorm VII (Flattening of the right nasolabial fold noted) Motor Strength: Normal Lower Extremities and Normal Upper Extremities; negative Pronator Drift Motor Tone: Normal Lower Extremities and Normal Upper Extremities Muscle Bulk/Involuntary Movements: No Involuntary Movements; negative Muscle Atrophy Sensation: Light Touch Intact, Pain/Temperature Intact and Proprioception Intact Coordination: negative Dysdiadochokinesia, Finger-Nose Abnormal or Heel-Muñoz Abnormal Deep Tendon Reflexes: Rt Triceps: 2+, Lt Triceps: 2+, Rt Biceps: 2+, Lt Biceps: 2+, Rt Brachioradialis: 2+, Lt Brachioradialis: 2+, Rt Patellar: 1+, Lt Patellar: 2+, Rt Ankle: 1+ and Lt Ankle: 1+ Special Tests: negative Babinski Present Results & Data Vital Signs (Past 12 Hours) Vital Signs Temp Pulse Pulse Resp BP Pulse Ox O2 Del Method 11/27/24 07:57 36.7 C 80 16 171/92 H 94 Room Air 11/27/24 02:44 36.7 C 80 18 152/73 H 95 Room Air 11/26/24 22:44 37.2 C 77 16 137/80 95 Room Air 11/26/24 22:24 72 Laboratory Results WBC 9.09, hemoglobin 13.1, hematocrit 38.4, platelet count 319, sodium 133, potassium 3.8, BUN 14, creatinine 0.86, glucose 103, hemoglobin A1c 6.0, calcium 9.4, triglycerides 148, cholesterol 175, LDL 99, HDL 46 Coding Level of Care Code 49576 INT INP/OBS CARE 375MIN Diagnoses Stroke I63.9 CVA mechanism: unspecified Time Spent (min) 75 Comment Total time includes patient contact, chart review, counseling, note preparation (1) Stroke CVA mechanism: unspecified Qualified Code(s): I63.9 - Cerebral infarction, unspecified
[2024-11-27] MEDS: METOPROLOL SUCC 25MG EXT REL TAB PO SCH (08:45)
[2024-11-27] MEDS: ROSUVASTATIN CALCIUM 10 MG TAB PO SCH (08:45)
[2024-11-27] MEDS: MULTIVITAMIN TAB PO SCH (08:45)
[2024-11-27] MEDS: ASPIRIN 81 MG ECTAB PO SCH (08:46)
[2024-11-27] MEDS: CLOPIDOGREL BISULFATE 75 MG TAB PO SCH (08:46)
[2024-11-27] MEDS: FUROSEMIDE 20 MG TAB PO SCH (08:46)
[2024-11-27] MEDS: CYANOCOBALAMIN (B-12) 500 MCG TABLET PO SCH (08:46)
[2024-11-27] MEDS: LOSARTAN POTASSIUM 25 MG TAB PO SCH (08:46)
[2024-11-27] MEDS: GADOBUTROL 65ML VIAL IV ONE (09:56)
--- NOTE | 2024-11-27 11:29 | Magnetic Resonance Report ---
MR brain wo con HISTORY: 69 years-old Female Acute CVA acute stroke like symptoms COMPARISON: Head CT 11/26/2024 TECHNIQUE: Multiplanar multisequence MRI of the brain was obtained without IV contrast. FINDINGS: Confirmation of the acute left frontal lobe infarct measuring 3.5 x 2.1 cm. This extends into the ope rculum, and insular cortex. There are additional punctate acute infarcts within the left frontal lobe superior to the larger infarct a few additional punctate foci within the left parietal lobe and ante rior left frontal lobe. Additional more subtle ill-defined acute infarcts in the left cerebellum camille uring up to 1.8 cm on image 7 series 3. Midline structures appear unremarkable. Degenerative changes of the imaged cervical spine. No acute i ntracranial hemorrhage, midline shift, abnormal extra-axial collection, hydrocephalus or intra-axial mass. Senescent mineralization of the lentiform nuclei. Involutional changes with moderate T2/FLAIR h yperintense foci throughout the white matter. Cytotoxic edema noted within the aforementioned infarct s. Venous sinuses and major arterial flow voids appear patent. Skull, orbits and soft tissues are unr emarkable. IMPRESSION: 1. Confirmation of the acute 3.5 cm left frontal lobe infarct. Additional punctate left frontal and p arietal infarcts also noted as above. 2. Small additional acute infarcts in the left cerebellum. Findings are suggestive of thromboembolic etiology. 3. Involutional changes with chronic microvascular ischemic disease. 4. No acute intracranial hemorrhage or midline shift. ACT 112: Negative or not required by law. The above report was generated using voice recognition software. It may contain grammatical, syntax o r spelling errors. Electronically signed by: Elliot Hendricks M.D. 11/27/2024 11:27 AM
--- NOTE | 2024-11-27 11:56 | Magnetic Resonance Report ---
MR angio head wo con HISTORY: 69 years-old Female Acute CVA acute strokelike symptoms COMPARISON: Brain MRI of same day TECHNIQUE: MRA of the head was obtained utilizing 3-D [id number] sequencing with MIP reformats. A ll measurements were obtained according to NASCET criteria. FINDINGS: The imaged distal internal carotid arteries are widely patent. The anterior middle cerebral arteries are widely patent. There is high-grade stenosis noted within the distal aspect of the right P1 segmen t of the posterior cerebral artery on image 106 series 8. Otherwise unremarkable MRA of the head. IMPRESSION: 1. 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 2. Otherwise unremarkable MRA of the head. 3. Brain MRI dictated separately. ACT 112: Negative or not required by law. The above report was generated using voice recognition software. It may contain grammatical, syntax o r spelling errors. Electronically signed by: Elliot Hendricks M.D. 11/27/2024 11:53 AM
--- NOTE | 2024-11-27 12:42 | Magnetic Resonance Report ---
NECK MRA HISTORY: Acute stroke like symptoms Acute CVA TECHNIQUE: Opak-uf-fxybjk and gadolinium-enhanced MRA of the neck was performed both before and after the intravenous administration of contrast. All measurements were calculated based on NASCET criteri a. COMPARISON STUDY: Brain MRI of same day FINDINGS: The aortic arch and proximal great vessels are widely patent. There is no significant sten osis, occlusion, or dissection identified within the bilateral common carotid, internal carotid, or v ertebral arteries. IMPRESSION: No significant stenosis, occlusion, or dissection identified within the carotid or vertebral arteries . ACT 112: Negative or not required by law. Electronically signed by: Elliot Hendricks M.D. 11/27/2024 12:40 PM
--- NOTE | 2024-11-27 13:38 | XCELERA ---
[id number]
--- NOTE | 2024-11-27 14:27 | Hospitalist Progress Note ---
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 No thrombus or shunt seen on cardiac echo. This likely represents atherosclerotic emboli. A right sided posterior cerebral stenosis is noted but this is intracranial and on the wrong side to account for her current clinical situation. Neurology consultation noted. She is now on aspirin and Plavix therapy. She seems to be doing quite well. Hopefully she can go home tomorrow, November 28 (2) Post herpetic neuralgia: Plan: Symptoms are along the left dermatome under left breast dating to 5 - 6 weeks ago. Minimal symptoms at this time. She recently discontinued gabapentin (3) Shingles: Plan: Resolving zoster eruption left T5 level (4) Hypertension: Plan: Mildly elevated but acceptable. Continue current medical management. Cardiac echo report noted (5) Hyperlipidemia: Plan: Stable. Continue rosuvastatin Plan Hopeful discharge to home tomorrow, November 28 Admission and Anticipated Discharge Date Admission Date: November 26, 2024 Subjective Alert and oriented. She is clinically improved. Brain MRI scan reveals multiple ischemic left CVAs of probably thromboembolic origin. Cardiac echo is negative for any evidence of shunt or thrombus. Her thromboembolic CVAs are probably due to to atherosclerotic plaque that has broken loose and travel downstream. She has minimal symptoms at this time. She is on aspirin and Plavix. Neurology consultation noted. Continue OT, PT, speech evaluations while hospitalized. Hopefully she can go home tomorrow, November 28 Review of Systems 2 Review of Systems: Constitutionalno fever or chills ENTno blurred vision, no double vision, no epistaxis, no sore throat Respiratoryno cough, no wheezing, no shortness of breath Cardiacno palpitations, no chest pain, no syncope Magdiel nausea, vomiting, diarrhea, melena, hematochezia GUno urinary retention, no urinary incontinence, no dysuria, no hematuria Musculoskeletalno joint pain, no muscle tenderness Skinno bruising, no rashes, no pruritus Neurono isolated weakness, no paresthesia, no weakness Psychno depression, no anxiety Physical Exam 2 Physical Exam: General-alert and oriented x3, no fever, no chills HEENT-head atraumatic and normocephalic, pupils equal and reactive to light, extraocular muscles intact Neck-no lymphadenopathy or thyromegaly, trachea midline Chest-clear to auscultation. No rales, wheezing or rhonchi Cardiac-regular rate and rhythm, normal S1 and S2 Abdomen-normal bowel sounds, no hepatosplenomegaly Extremities-no cyanosis, clubbing, or edema Neuro-cranial nerves II through XII intact, motor and sensory function within normal limits, strength symmetrical, no focal deficits Psych-normal affect, normal mood Results & Data Results & Data Vital Signs (Past 12 Hours) Vital Signs Temp Pulse Pulse Resp BP BP Pulse Ox 11/27/24 12:08 36.4 C L 73 20 148/77 H 95 11/27/24 10:43 96 11/27/24 09:08 86 184/85 H 96 11/27/24 08:00 82 11/27/24 07:57 36.7 C 80 16 171/92 H 94 11/27/24 02:44 36.7 C 80 18 152/73 H 95 O2 Del Method 11/27/24 12:08 Room Air 11/27/24 10:43 11/27/24 09:08 Room Air 11/27/24 08:00 11/27/24 07:57 Room Air 11/27/24 02:44 Room Air Laboratory Results 11/27/24 05:56 11/27/24 05:56 PG Care Time/CCT Total # of Minutes Spent Total Time Spent with Patient: Total time spent is greater than 50% in coordination of care (as documented) at patient's floor/unit and/or counseling patient: Coding Level of Care Code 37947 SUB INP/OBS CARE 3/50MIN Diagnoses Stroke I63.9 CVA mechanism: unspecified Post herpetic neuralgia B02.29 Shingles B02.9 Primary hypertension I10 Hypertension type: primary hypertension Pure hypercholesterolemia E78.00 Hyperlipidemia type: pure hypercholesterolemia (1) Stroke CVA mechanism: unspecified Qualified Code(s): I63.9 - Cerebral infarction, unspecified (4) Hypertension Hypertension type: primary hypertension Qualified Code(s): I10 - Essential (primary) hypertension (5) Hyperlipidemia Hyperlipidemia type: pure hypercholesterolemia Qualified Code(s): E78.00 - Pure hypercholesterolemia, unspecified
[2024-11-28 08:01] LABS: Basophils # (auto) 0.08 K/uL (0.00-0.20); Eosinophils # (auto) 0.22 K/uL (0.00-0.50); Eosinophils % (auto) 2.7 %; Hematocrit (blood only) 37.8 % (37.0-47.0); Hemoglobin 12.9 g/dl (12.0-16.0); Immature Granulocytes # (auto) 0.04 K/uL (0.01-0.20); Immature Granulocytes % (auto) 0.5 %; Lymphocytes # (auto) 1.84 K/uL (1.20-3.40); Lymphocytes % (auto) 22.4 %; Mean Corpuscular Hemoglobin 31.5 pg (25.0-34.0); Mean Corpuscular Hgb Conc 34.1 g/dL (32.0-36.0); Mean Corpuscular Volume 92.2 fL (80.0-100.0); Mean Platelet Volume 9.4 fL (9.4-12.4); Monocytes # (auto) 0.91 K/uL (0.11-0.59); Monocytes % (auto) 11.1 %; Neutrophils # (auto) 5.13 K/uL (1.40-6.50); Neutrophils % (auto) 62.3 %; Platelet Count 321 K/uL (130-400); RDW Coefficient of Variation 12.8 % (11.5-14.5); RDW Standard Deviation 43.4 fL (36.4-46.3); White Blood Count 8.22 K/ul (4.8-10.8)
[2024-11-28 08:20] LABS: BUN Creatinine Ratio 16.3 (10-20); Calcium 9.4 mg/dl (8.6-10.3); Creatinine Clr Calc Pharmacy 60.5 ml/min; Potassium 4.5 mmol/L (3.5-5.1)
--- NOTE | 2024-11-28 08:56 | Neurology Progress Note ---
Date of Service November 28, 2024 Assessment & Plan (1) Acute CVA (cerebrovascular accident): (2) Expressive aphasia: (3) Hypertension: Plan This patient had the sudden onset of speech/language issues as well as some vertigo November 26. Currently, she has some hesitancy and word finding difficulties but seems to comprehend well. There is no dysarthria today. The patient can read fairly well (with some hesitancy at times on certain words) but is not writing well. She has no other focal neurologic deficits or lateralizing signs. She has no meningeal signs or encephalopathy. MRI of the brain shows a medium sized stroke in the left posterior frontal head region. In addition it shows multiple small 2 punctate lesions additionally in the left frontal, left parietal, and left cerebellar hemisphere. Given the distribution and number of acute strokes, I suspect embolic phenomenon however there is no obvious source of embolus. Echocardiogram and the great vessels in the aortic arch and neck were unremarkable. She had some stenosis in the left posterior cerebral artery. Currently she is on dual antiplatelet therapy. Patient has a history of hypertension and this is her main risk factor for stroke. Her glucose is borderline, although she has no history of diabetes. She is not a cigarette smoker and has no other cardiac disease. She does have dyslipidemia but is fairly well-controlled on low-dose rosuvastatin. Recommendations: 1. Continue speech therapy 2. It is reasonable to continue with physical and Occupational Therapy as well. Technically, she would be a good rehabilitation hospital candidate. 3. Control blood pressure, aiming for a mean arterial pressure of approximately 95-100 for now. 4. Given her total cholesterol 175 ("johnson zone" between 150 and 200) it is reasonable to increase rosuvastatin to 20 mg daily. 5. There is no source of embolus or indication for anticoagulation at this time. 6. Continue dual antiplatelet therapy with 75 mg clopidogrel and 81 mg aspirin daily. I would do this for several months and then remain on 81 mg aspirin alone. 7. Consider 30-day event monitor. 8. Can follow-up as an outpatient with neurology 2 to 3 weeks after discharge (neurology PA with Dr. Aguayo). Overall, I spent a total of 80 minutes with this case including review of records, review of MRI films, direct evaluation of the patient at bedside, report generation, and discussion of the case with the patient and RN at bedside and Dr. Sebastian including differential diagnosis and treatment options. Admission and Anticipated Discharge Date Admission Date: November 26, 2024 Subjective This patient has no complaint of pain or headache this morning. Although she had some dizziness yesterday, she does not have any lightheadedness or vertigo this morning. She denies any weakness or numbness of the limbs and has reasonable coordination of the limbs. She does realize that she has a speech problem. This morning, blood pressure is 165/93 and she is afebrile. Pulse is in the 60s to 80s range and is in normal sinus rhythm. She has had no atrial fibrillation or other dysrhythmia identified since she has been in the hospital. CBC this morning was unremarkable. CHEM profile was normal as well. Glucose was 109. Yesterday, triglycerides were 148, total cholesterol 175 and hemoglobin A1c was 6.0 MRI of the brain revealed multiple strokes. There was a 3.5 cm left posterior frontal stroke with some surrounding punctate strokes in the left frontal area and left parietal head region. In addition there were multiple small left cerebellar hemispheric strokes. There were no strokes on the right side of the brain. I reviewed these films and reviewed them with the patient. MR angiography of the neck was unremarkable with no vascular stenoses or anomalies. This study included the aortic arch and proximal great vessels which were widely patent as well. MR angiography of the head revealed a high-grade stenosis of the left P1 segment (of the posterior cerebral artery). There was no stenosis in the middle cerebral artery distributions. Echocardiogram showed no source of thrombus. There was some mild concentric left ventricular hypertrophy. Results & Data Vital Signs (Past 12 Hours) Vital Signs Temp Pulse Pulse Resp BP BP Pulse Ox 11/28/24 07:48 36.4 C L 80 18 165/93 H 96 11/28/24 05:40 68 11/28/24 03:38 36.5 C 74 16 127/74 95 11/27/24 23:22 36.5 C 72 16 130/73 95 11/27/24 21:41 66 O2 Del Method 11/28/24 07:48 Room Air 11/28/24 05:40 11/28/24 03:38 Room Air 11/27/24 23:22 Room Air 11/27/24 21:41 Exam (Neuro) Physical Exam: She is awake and alert. She has no dysarthria and can repeat test phrases fairly well. She can read test sentences fairly fluently although there is some hesitation on certain words in the sentence. There is hesitation with some test words especially "drafter chief design". She does get them however. She could identify test objects fairly well although had trouble with saying "cactus". She could identify what was going on in the test picture but had word finding difficulties for stool and washing dishes. Therefore, she has a motor/expressive aphasia of a type. I do not believe she has a receptive aphasia. Extraocular muscles are intact without nystagmus, however she got a little confused with following my finger (the directions). Pupils are 3 to 4 mm bilaterally reactive to light. There is no facial droop and tongue is midline, with good strength bilaterally. There is no decrease sensation of the face bilaterally. Neck is supple. With outstretched arms there is no drift. There is no ataxia with finger-nose testing. Facility seems normal in the hands. Motor strength is 5/5 diffusely in all major muscle groups in the arms both proximally and distally with good tone. Leg strength is 5/5 diffusely both proximally and distally. Reflexes are 2/4 in the biceps, triceps, and brachioradialis tendons bilaterally. Reflexes are 1/4 in the quadriceps and Achilles tendons bilaterally. Toes are downgoing to plantar stimulation bilaterally. There is normal sensation in the arms and legs to touch Stance sitting up in bed is normal. PG Care Time/CCT Total # of Minutes Spent Total Time Spent with Patient: Total time spent is greater than 50% in coordination of care (as documented) at patient's floor/unit and/or counseling patient: Coding Level of Care Code 58282 SUB INP/OBS CARE 3/50MIN Diagnoses Acute CVA (cerebrovascular accident) I63.9 Expressive aphasia R47.01 Primary hypertension I10 Hypertension type: primary hypertension Time Spent (min) 80 (3) Hypertension Hypertension type: primary hypertension Qualified Code(s): I10 - Essential (primary) hypertension
[2024-11-28 12:01] VITALS: BP 118/72; RESP 16; TEMP 97.7; O2SAT 93
--- NOTE | 2024-11-28 12:13 | Pharmacy Report ---
- Date of Service November 28, 2024 - Pharmacy CVA/TIA Medication Review Medications to Prevent Stroke handout has been added to the patients discharge packet. Antiplatelet(s) * ASA 81mg daily plus clopidogrel 75mg daily * Per neuro recs, continue DAPT for several months and then remain on ASA 81mg daily. Cholesterol * High intensity statin: rosuvastatin 10 mg daily * Neuro rec increase to 20mg daily. MD made aware. DVT Prophylaxis * SCD knee Therapeutic Anticoagulation * No history of Afib/Aflutter noted Type 2 Diabetes * HbA1c: 6.0% (11/27/24) * No DM meds currently. Of note, pt was prescribed prednisone taper in September 2024.
--- NOTE | 2024-11-28 14:11 | Discharge Summary ---
Date of Service November 28, 2024 Admission HPI Per Admitting Provider Pt is a 69-year-old female with a past medical history including hyperlipidemia, hypertension, palpitations, peripheral edema, shingles recently, postherpetic neuralgia, cellulitis of left breast, whitecoat syndrome with diagnosis of hypertension. She presents with confusion this morning 730 that seemed worse than yesterday. She began feeling lightheaded yesterday about 11 AM. Last known well was last n ight at 11 PM. and daughter in the room at the time of my examination. They state that she seemed confused had trouble finding words and they brought her to the emergency department. She had no falls or trauma. She has not been ill. They did not notice any facial droop or change in gait or function. They deny history of stroke or TIA in the past. At the time of my examination, clhoe jimenez is awake and alert. She follows simple commands. She is having difficulty with word finding and has some minimal ataxia. She denies current headache, visual changes, pain, fever, chills. A stroke alert was called and patient is not a TNKase candidate and there is no endovascular invention that can be performed. Recommendation is aspirin 324, Plavix 300, MRI and MRA and admission to the hospital. Patient has a history of shingles 5 to 6 weeks ago. She saw some evidence of the infection under her left breast following the dermatome back to her spine. There are no open lesions. Patient stopped taking gabapentin as symptoms have improved. Patient's current blood pressure is 185/94. Last outpatient reading was 143/89 on 09/29/2024. Patient reported to have whitecoat syndrome. Will allow for permissive hypertension due to acute CVA. Patient has no other acute complaints at this time. Principal Diagnosis Acute CVA Discharge Exam General-alert and oriented x3, NAD HEENT-head atraumatic and normocephalic, pupils equal and reactive to light, extraocular muscles intact Neck-no lymphadenopathy or thyromegaly, trachea midline Chest-CTAB. No rales, wheezing or rhonchi Cardiac-RRR, normal S1 and S2, no murmurs, rubs or clicks Abdomen-nondistended, soft, nontender, normal bowel sounds Extremities-no cyanosis, clubbing, or edema Neuro-cranial nerves II through XII intact, motor and sensory function within normal limits, strength symmetrical, no focal deficits Psych-normal affect, normal mood Discharge Data Allergies Allergy/AdvReac Type Severity Reaction Status Date / Time mold Allergy Intermediate Congested Unverified 11/26/24 15:58 pollen extracts Allergy Intermediate Congested Unverified 11/26/24 15:58 ragweed pollen Allergy Intermediate Congested Unverified 11/26/24 15:58 lisinopril AdvReac Mild headache, Verified 11/26/24 15:58 dizzy Dust AdvReac Unknown Congested Uncoded 11/26/24 15:58 Consultations 11/26/24 14:30 ED Decision to Admit Stat 11/26/24 17:39 Consult Neurology Routine Ordered Studies 11/26/24 13:20 CT head/brain wo con Stat 11/27/24 17:39 MR angio head wo con Urgent MR angio neck wo/w con Routine MR brain wo con Routine Hospital Course (1) Acute CVA (cerebrovascular accident): (2) Expressive aphasia: (3) Hypertension: Plan (1) Stroke: Plan: - Acute left frontal stroke on CT - Stroke alert called. Dr. Martinez from [place] recommends aspirin, Plavix, MRI head, MRA of the head and neck - Echocardiogram with bubble study to rule out PFO and paradoxical embolism - Orders from stroke order set used for critical pathway - PT, OT, BRAND STRATEGIST evaluations - Neurology recommendations: 1. Continue speech therapy 2. It is reasonable to continue with physical and Occupational Therapy as well. Technically, she would be a good rehabilitation hospital candidate. 3. Control blood pressure, aiming for a mean arterial pressure of approximately 95-100 for now. 4. Given her total cholesterol 175 ("johnson zone" between 150 and 200) it is reasonable to increase rosuvastatin to 20 mg daily. 5. There is no source of embolus or indication for anticoagulation at this time. 6. Continue dual antiplatelet therapy with 75 mg clopidogrel and 81 mg aspirin daily. I would do this for several months and then remain on 81 mg aspirin alone. 7. Consider 30-day event monitor. 8. Can follow-up as an outpatient with neurology 2 to 3 weeks after discharge (neurology PA with Dr. Aguayo). (2) Post herpetic neuralgia: Plan: - History of stroke along the left dermatome right under left breast 5 to 6 weeks ago - No open sores - Pain is improved - Patient discontinued gabapentin at home (3) Shingles: Plan: - Patient examined. No open lesions along the dermatome on the left under the left breast. (4) Hypertension: Plan: - Continue home medications. Will allow for permissive hypertension during this acute phase of the CVA - Check echocardiogram as part of stroke protocol (5) Hyperlipidemia: Plan: - Continue rosuvastatin, increase to 20mg daily Plan DVT prophylaxis: SCDs and ELISABETH hose. Hold anticoagulation during acute phase of CVA CODE STATUS: Full resuscitation per patient and family Anticipate patient will need rehabilitation particularly with speech-language pathology Total Time Total Time Spent Total Time Spent (In Minutes): <30 Discharge Plan Discharge Items Patient Disposition: Home - Self-Care Reason For Visit: ACUTE CVA Discharge Diagnosis: Acute CVA Condition on Discharge: Fair Activity: Resume your previous activity Non-emergency contact: Primary Care Provider Call non-emergency contact if: your symptoms worsen Follow-up/Referrals: Ernestine Snow CRNP [Primary Care Provider] - 12/02/24 10:00 am Diet: Heart Healthy Addtl Attending Provider Instructions: You were admitted to the hospital for a stroke and seen by neurology. You received therapy services during your stay. We are recommending that you continue with speech therapy and consider having an evaluation with physical and occupational therapy. Our nurse navigator will help arrange a cardiac event monitor. You can resume you home medications except your rosuvastatin. We are recommending that you continue taking aspirin 81mg daily. We are also sending the following prescriptions to your pharmacy: Clopidogrel 75 mg Daily Rosuvastatin 20 mg daily Please follow up with your primary care physician in 5-7 days Please also follow up with Neurology in outpatient in 2-3 weeks. Pending Studies at Discharge: No Stand-Alone Forms: My [facility], Smoking Cessation Medications and DC Order Prescriptions: New clopidogrel 75 mg Tablet 75 mg PO QAM 30 Days Qty: 30 0RF aspirin 81 mg Tablet,Delayed Release (Dr/Ec) 81 mg PO QAM Qty: 30 0RF rosuvastatin 20 mg capsule, sprinkle 20 mg PO DAILY Qty: 30 0RF Continued hydrochlorothiazide 25 mg tablet 25 mg PO QAM Qty: 90 3RF Hold Instructions: not taking it metoprolol succinate 25 mg tablet extended release 24 hr 25 mg PO DAILY Qty: 90 3RF losartan 25 mg tablet 25 mg PO DAILY Qty: 90 3RF calcium citrate-vitamin D3 315 mg- 250 unit tablet 1 tab PO HS Rx Instructions: Family unsure of this medication. cyclobenzaprine 5 mg tablet 5 mg PO TID PRN (Reason: muscle spasm) Qty: 20 0RF mecobalamin (vitamin B12) 1,000 mcg tablet,chewable 1,000 mcg PO DAILY Rx Instructions: Family unsure of this medication. black cohosh 200 mg Capsule 200 mg PO QAM Rx Instructions: Family unsure of this medication. Airborne (ascorbate sodium) 333-1.7 mg tablet,chewable 1 tab PO QAM PRN (Reason: Sick) Rx Instructions: Family unsure of this medication. multivitamin Tablet 1 tab PO DAILY Rx Instructions: Family unsure of this medication. Discontinued rosuvastatin 10 mg tablet 10 mg PO QAM Qty: 90 3RF Discharge Orders: Discharge Order (Routine); Ordered 11/28/24 Ordered By: Jazmyn Oviedo/Other Patient Handouts: Clopidogrel Oral Tablet, Rosuvastatin Oral Tablet, Aspirin Oral Tablet 81 mg, Prediabetes, Aphasia: Improving Communication, Stroke Mood Swings Depression, 5 Steps for Eating Healthier, Discharge Instructions for Stroke, Risk Factors for Stroke, Stroke Self Care After Admission Data Admit Date/Time: 11/26/24 15:42 Attending Provider: Ilya Sebastian Admit Provider: Dwaine Ybarra Primary Care Provider: Ernestine Snow Other Providers: Dwaine Ybarra; Jeffrey Aguayo; [facility] Other Interventions: Discharge Summary Assessment (RN) Last Done: 11/28/24 14:25 Supervising Physician Co-Signing Physician Notes I personally examined the patient and verified all reina points of history and exam, discussed case, and agree with decision making with Dr Hathaway Feeling better. Feels up to going home. Neurology input appreciated/Case discussed with neurology. Main deficits are aphasic. Vitals noted, in general she is awake and alert pleasant no distress. HEENT normocephalic atraumatic mucous membranes moist. Breathing unlabored no accessory muscle use good effort. No focal motor or sensory deficits noted. Speech delay noted. multiple strokes and associated cerebral edemano embolic source noted, therefore manage with dual antiplatelets and statin, evaluate for embolic source with 30-day event monitor. Outpatient speech therapy. Safe/stable for home. Otherwise as above. Resident Activity Tracking Resident Involvement: Resident Care Provided Care Provided: [facility]
[2024-11-28 14:34] VITALS: PULSE 65
[2024-11-28] MEDS: STROKE PATIENT DISCHARGE STA (14:44)
--- NOTE | 2024-11-28 17:02 | Billing Data ---
Date of Service November 28, 2024 Coding Level of Care Code 52643 IN/OBS DISCH 30 MIN/LESS
--- NOTE | 2024-11-30 09:04 | Pharmacy Report ---
Pharmacist Stroke Counseling - Date of Service November 30, 2024 - Scope: Pharmacy has been consulted to provide medication discharge counseling for this patient admitted with ischemic stroke as per the Pharmacist Discharge Counseling for Stroke Patients Protocol. - Medications on Discharge: Home Medications Medication Instructions Recorded Confirmed calcium 315 mg (as 1 tab PO HS 05/19/19 11/29/24 citrate)-vitamin D3 6.25 mcg (250 unit) tablet black cohosh 200 mg capsule 200 mg PO QAM 08/04/19 11/29/24 mecobalamin (vitamin B12) 1,000 1,000 mcg PO DAILY 09/29/24 11/29/24 mcg chewable tablet mv-min-vit C-ascorb 1 tab PO QAM PRN Sick 09/29/24 11/29/24 In-Iax-Wqd-herb #124 333 mg-1.7 mg chewable tablet (Airborne (ascorbate sodium)) multivitamin 1 tab PO DAILY 11/26/24 11/29/24 New Rx's Medication Instructions Recorded hydrochlorothiazide 25 mg tablet 25 mg PO QAM #90 tabs 11/30/23 metoprolol succinate 25 mg 25 mg PO DAILY #90 tabs 06/15/24 tablet,extended release 24 hr losartan 25 mg tablet 25 mg PO DAILY #90 tabs 06/20/24 cyclobenzaprine 5 mg tablet 5 mg PO TID PRN muscle spasm #20 09/15/24 tabs aspirin 81 mg tablet,delayed 81 mg PO QAM #30 tabs 11/28/24 release clopidogrel 75 mg tablet 75 mg PO QAM 30 days #30 tabs 11/28/24 rosuvastatin 20 mg sprinkle capsule 20 mg PO DAILY #30 caps 11/28/24 - Action: The above medications, specifically ones for stroke treatment/prophylaxis, have been reviewed in detail with the patient and/or patient traveling sales representative(s) prior to discharge. This includes indication, common adverse reactions, drug interactions, and medication administration. Medication counseling has been employed using the teach-back method to ensure understanding. - Outcome: The patient and/or patient traveling sales representative(s) have demonstrated understanding of the medications. Additional comments: * Confirmed that medications were picked up from the pharmacy and patient has started to take them as prescribed * No side effects observed or concerns so far * No obvious barriers to medication compliance identified Thank you for allowing pharmacy to be involved in the care of this patient. Please call [phone] with any additional questions
== END 2024-11-28 15:41 | disposition home or self-care (01) | DRG 64 ==
LOC: SUATTDRO → ED 13:07 → 2N 15:42 → SUATTDRO 15:42 → 2N 16:47